=== PATIENT | male | born 1965 | race Two or more races ===

== ENCOUNTER 2019-11-21 05:13 | Day surgery (SDC) | payer OTHER ==
[~2019-11-21 05:13] MED LIST: BUSPIRONE HCL7.5 MG PO; CITALOPRAM HBR20 MG PO; CLONAZEPAM1 M1 PO; RESTORIL30 MG PO; VALIUM PO
== END 2019-11-21 16:35 | disposition home or self-care (01) ==
LOC: CIR.AMB 05:13
PROVIDERS: ATTEND Orthopaedic Surgery Hand Surgery
DX: D36.12 Benign neoplasm of peripheral nerves and autonomic nervous system, upper limb, including shoulder (principal); M13.841 Other specified arthritis, right hand; Z20.828 Contact with and (suspected) exposure to other viral communicable diseases